=== PATIENT | male | born 1940 | race Caucasian/White ===

== ENCOUNTER 2022-02-10 16:36 | Emergency (ER) | payer MEDICARE ==
[~2022-02-10] VITALS: Ht 180.3 cm; Wt 81.2 kg
--- NOTE | 2022-02-10 16:45 | NUR ---
TO ER BED 1 FOR MD BOYD
--- NOTE | 2022-02-10 17:22 | NUR ---
X-RAY TECH AT BEDSIDE
[2022-02-10 17:43] LABS: BASOPHILS % (AUTO) 0.6 % (0.0-2.0); EOSINOPHILS % (AUTO) 1.5 % (0.0-6.0); HEMATOCRIT 40 % (39-51); HEMOGLOBIN 13.3 g/dL (13.5-17.5); LYMPHOCYTES # (AUTO) 0.8 K/uL (0.8-4.8); MEAN CORPUSCULAR HGB CONC 33 g/dl (31.0-36.0); MEAN CORPUSCULAR VOLUME 98 fL (80-96); MONOCYTES # (AUTO) 0.4 K/uL (0.1-1.30); MONOCYTES % (AUTO) 8.5 % (2.0-12.0); NEUTROPHILS # (AUTO) 3.3 K/uL (1.8-8.9); NEUTROPHILS % (AUTO) 72.4 % (43.0-81.0); PLATELET COUNT (AUTO) 252 K/uL (150-450); RED BLOOD CELL COUNT(AUTO) 4.09 MIL/uL (4.5-6.0); WHITE BLOOD COUNT (AUTO) 4.5 K/uL (4.3-11.0)
[2022-02-10] MEDS ORDERED: ESCI20TA PO (18:13)
[2022-02-10] MEDS ORDERED: AMLO-212 PO (18:13)
[2022-02-10] MEDS ORDERED: CARV6.252 PO (18:13)
[2022-02-10] MEDS ORDERED: GABA300C PO (18:13)
[2022-02-10] MEDS ORDERED: LOSA25TA27 PO (18:13)
[2022-02-10] MEDS ORDERED: CARB1TAB21 PO (18:13)
[2022-02-10] MEDS ORDERED: SIMV10TA98 PO (18:13)
[2022-02-10 18:27] LABS: ALANINE AMINOTRANSFERASE < 6 U/L (12-78); ALBUMIN 3.6 g/dL (3.4-5.0); ALKALINE PHOSPHATASE 210 U/L (46-116); ASPARTATE AMINOTRANSFERASE 16 U/L (15-37); BILIRUBIN,DIRECT 0.2 mg/dL (0.0-0.2); BILIRUBIN,TOTAL 0.7 mg/dL (0.2-1.0); CALCIUM, SERUM 9.4 mg/dL (8.5-10.1); CARBON DIOXIDE 25 mmol/L (21-32); CHLORIDE 102 mmol/L (98-107); CREATININE 1.6 mg/dL (0.6-1.3); POTASSIUM 4.5 mmol/L (3.5-5.1); SODIUM SERUM 135 mmol/L (136-145); TOTAL PROTEIN, SERUM 7.8 g/dL (6.4-8.2); UREA NITROGEN, BLOOD 35 mg/dL (7-18)
[2022-02-10 18:48] LABS: BILIRUBIN,URINE NEGATIVE (NEGATIVE); COLOR,URINE YELLOW (YELLOW); LEUKOCYTE ESTERASE ,URINE NEGATIVE (NEGATIVE); NITRITE, URINE NEGATIVE (NEGATIVE); PROTEIN,URINE NEGATIVE (NEGATIVE); UGLUCOSE NEGATIVE (NEGATIVE); UROBILINOGEN,URINE 0.2 EU/dL (0.2)
[2022-02-10 18:58] LABS: GLUCOSE 92 mg/dL (74-106)
[2022-02-10 20:10] VITALS: BP 133/74
--- NOTE | 2022-02-10 20:17 | NUR ---
Patient discharged to home in stable condition. Written and verbal after care instructions given. Patient verbalizes understanding of instruction.
== END 2022-02-10 20:39 | disposition home or self-care (01) ==
LOC: ER 16:40
DX: R44.3 Hallucinations, unspecified (principal); E86.0 Dehydration; Z95.0 Presence of cardiac pacemaker; Z79.899 Other long term (current) drug therapy
CPT/HCPCS: 36415; 71045-TC; 80048-TC; 80076-TC; 84484-TC; 85025-TC